=== PATIENT | female | born 1950 | race Caucasian/White ===

== ENCOUNTER 2017-08-22 14:40 | Outpatient (CLI) | payer MEDICARE, OTHER ==
--- NOTE | 2017-08-22 15:24 | XRAY Report ---
EXAM: LEFT SHOULDER RADIOGRAPHY EXAM DATE: 08/22/2017 03:05 PM. CLINICAL HISTORY: Fall one day ago. Left shoulder pain COMPARISON: None. TECHNIQUE: 3 views. FINDINGS: Bones: Mildly comminuted, impacted humeral neck fracture, with mild apex anterior angulation at the f racture site. Joints: Anteroinferior subluxation at the glenohumeral joint. Normal alignment of the acromioclavicul ar joint. Mild joint space loss and osteophytosis at the acromioclavicular joint, and mild subchondra l degenerative changes at the glenohumeral joint, compatible with osteoarthritis. Soft tissues: The visualized hemithorax is unremarkable. No evident focal soft tissue swelling. IMPRESSION: 1. Mildly comminuted, angulated, and impacted humeral neck fracture with associated anteroinferior hardwick bluxation at the glenohumeral joint. 2. Mild glenohumeral and acromioclavicular osteoarthritis. RADIA The call report notification system was initiated by Dr. Miley Flores at 15:15 hrs on 08/22/17. The above findings were discussed with Roel Rubin by Dr. Miley Flores at 15:22 hrs on 08/22/17. Referring Provider Line: [phone] SITE ID: [id number]
--- NOTE | 2017-08-22 15:24 | XRAY Preliminary Report ---
Exam: XR HUMERUS LT IMPRESSION: Mildly comminuted, angulated, and impacted humeral neck fracture with associated anteroin ferior subluxation at the glenohumeral joint. ASHWINIA The call report notification system was initiated by Dr. Miley Flores at 15:20 hrs on 08/22/17. The above findings were discussed with Roel Rubin by Dr. Miley Flores at 15:23 hrs on 08/22/17. SITE ID: [id number]
--- NOTE | 2017-08-22 15:24 | XRAY Report ---
EXAM: LEFT HUMERUS RADIOGRAPHY EXAM DATE: 08/22/2017 03:05 PM. CLINICAL HISTORY: Fall one day ago. Left shoulder pain. COMPARISON: None. TECHNIQUE: 2 views. FINDINGS: Bones: Mildly comminuted, impacted humeral neck fracture, with mild apex anterior angulation at the f racture site. Joints: Anteroinferior subluxation at the glenohumeral joint. Grossly normal alignment of the elbow a s visualized. Soft Tissues: No evident focal soft tissue swelling. IMPRESSION: Mildly comminuted, angulated, and impacted humeral neck fracture with associated anteroin ferior subluxation at the glenohumeral joint. RADIA The call report notification system was initiated by Dr. Miley Flores at 15:20 hrs on 08/22/17. The above findings were discussed with Roel Rubin by Dr. Miley Flores at 15:23 hrs on 08/22/17. Referring Provider Line: [phone] SITE ID: [id number]
== END 2017-08-22 23:59 | disposition home or self-care (01) ==
LOC: DI 14:40
PROVIDERS: ATTEND Family Medicine
DX: S42.292A Other displaced fracture of upper end of left humerus, initial encounter for closed fracture (principal); M19.012 Primary osteoarthritis, left shoulder

== ENCOUNTER 2017-11-23 13:36 | Outpatient (CLI) | payer MEDICARE, OTHER ==
--- NOTE | 2017-11-23 15:16 | DEXA Report ---
Procedure Date: 11/23/2017 Accession Number: [id number] / [id number] Procedure: DEX - Dexa Spine and/or Hip CPT Code: FULL RESULT: EXAM: Dexa Spine and/or Hip DATE: 11/23/2017 1:59 PM CLINICAL HISTORY: OSTEOPENIA TECHNIQUE: Dual energy x-ray absorptiometry (DXA) was performed on a [employer]. Regions measured are the AP Spine, femoral neck, and if needed forearm. COMPARISON: 11/20/2015. In accordance with the International Society for Clinical Densitometry (ISCD) guidelines, data from previous exams may be reanalyzed using current recommendations and techniques. This is done to allow a more accurate basis for comparison with the current study. FINDINGS: The data for the lumbar spine is as follows: BMD (g/cm/cm) T-SCORE Z-SCORE REGION L1 0.866 -2.2 -1.0 L2 1.006 -1.6 -0.4 L3 1.002 -1.7 -0.5 L4 1.067 -1.1 0.1 TOTAL 0.990 -1.6 -0.4 NOTE: All evaluable vertebrae are used for classification The data for the hip is as follows: BMD (g/cm/cm) T-SCORE Z-SCORE REGION Neck 0.901 -1.0 0.3 TOTAL 0.849 -1.3 -0.2 NOTE: The femoral neck or total proximal femur, whichever is lowest, is used for classification. DXA RESULTS SUMMARY: Spine SCAN DATE AGE BMD CHANGE VS CHANGE VS PREVIOUS PREVIOUS % 11[age]23/2017 [age] 0.990 -0.056* -5.4* 11/20/2015 65.0 1.046 * Denotes significant change at the 95% confidence level. Denotes dissimilar scan types or analysis methods. DXA RESULTS SUMMARY: Hip SCAN DATE AGE BMD CHANGE VS CHANGE VS PREVIOUS PREVIOUS % 11[age]23/2017 67.1 0.849 -0.030 -3.4 11[birth year]20/2015 65.0 0.879 * Denotes significant change at the 95% confidence level. Denotes dissimilar scan types or analysis methods. IMPRESSION: THE WHO CLASSIFICATION BASED ON THE INTERNATIONAL REFERENCE STANDARD IS OSTEOPENIA. THE FRACTURE RISK IS INCREASED. RECOMMENDATION: Patients with diagnosis of osteoporosis or osteopenia should have regular bone mineral density assessment. For those eligible for Medicare, routine testing is allowed once every 2 years. Testing frequency can be increased for patients who have rapidly progressing disease or for those who are receiving medical therapy to restore bone mass. COMMENT: World Health Organization (WHO) definitions for osteoporosis and osteopenia: NORMAL BMD: T-score at -1.0 or higher, fracture risk is low OSTEOPENIA BMD: T-score between -1.0 and -2.5, fracture risk is increased. OSTEOPOROSIS BMD: T-score at -2.5 or lower, fracture risk is high. National Osteoporosis Foundation recommends: 1. Obtain adequate dietary calcium (at least 1200 mg per day) and vitamin D (400-800 international units per day). 2. Participate, as appropriate, in regular weightbearing and muscle-strengthening exercise. 3. Avoid tobacco use and reduce alcohol and caffeine intake. 4. For more detailed information see the website at www.NOF.org.
== END 2017-11-23 13:37 | disposition home or self-care (01) ==
LOC: DI 13:36
PROVIDERS: ATTEND Physician Assistant
DX: M85.89 Other specified disorders of bone density and structure, multiple sites (principal)
CPT/HCPCS: 77080

== ENCOUNTER 2019-05-26 14:29 | Outpatient (CLI) | payer MEDICARE, OTHER ==
[2019-05-26 19:11] LABS: ALBUMIN 3.9 g/dL (3.2-5.5); ALBUMIN/GLOBULIN RATIO 1.6 (1.0-2.2); BILIRUBIN,TOTAL 0.7 mg/dL (0.2-1.0); CALCIUM 9.3 mg/dL (8.5-10.3); CREATININE 0.8 mg/dL (0.4-1.0); TOTAL PROTEIN 6.3 g/dL (6.7-8.2)
== END 2019-05-26 23:59 | disposition home or self-care (01) ==
LOC: LAB.WCP 14:29
PROVIDERS: ATTEND Physician Assistant
DX: Z79.899 Other long term (current) drug therapy (principal)
CPT/HCPCS: 36415; 80053

== ENCOUNTER 2019-06-07 11:43 | Outpatient (CLI) | payer MEDICARE, OTHER ==
--- NOTE | 2019-06-08 13:43 | XRAY Report ---
Reason: NECK PAIN, SPASTIC TORTICOLLIS Procedure Date: 06/07/2019 Accession Number: [id number] / [id number] Procedure: WCP - Cervical Spine 2 View CPT Code: Final Report FULL RESULT: EXAM: CERVICAL SPINE RADIOGRAPHY EXAM DATE: 06/07/2019 11:43 AM. CLINICAL HISTORY: Neck pain, spastic torticollis. COMPARISONS: None. TECHNIQUE: 3 views. FINDINGS: Alignment: Normal. No spondylolisthesis or scoliosis. Bones: The cervical vertebral bodies and posterior elements are well visualized from the skull base through C7-T1. No fractures or bone lesions. Degenerative Changes: Moderate to severe disk height loss at C3-C4, C4-C5, C5-C6, and C6-C7. Mild multilevel facet DJD. Soft Tissues: Normal. No prevertebral soft tissue swelling. The visualized lung apices are clear. IMPRESSION: Moderate to severe cervical spondylosis without acute abnormality seen. RADIA
== END 2019-06-07 23:59 | disposition home or self-care (01) ==
LOC: DI.WCP 11:43
PROVIDERS: ATTEND Family Medicine
DX: M47.812 Spondylosis without myelopathy or radiculopathy, cervical region (principal); G24.3 Spasmodic torticollis
CPT/HCPCS: 72040

== ENCOUNTER 2019-06-16 13:15 | Outpatient (CLI) | payer MEDICARE, OTHER ==
--- NOTE | 2019-06-17 09:18 | Mammography Report ---
Reason: ROUTINE MAMMO Procedure Date: 06/16/2019 Accession Number: [id number] / [id number] Procedure: NITESH - Screening Mammo w/Eron CPT Code: Final Report FULL RESULT: EXAM: Screening Mammo w/Eron DATE: 06/16/2019 1:58 PM CLINICAL HISTORY: Screening encounter. History of nulliparity. TECHNIQUE: (B) - Bilateral CC and MLO views were obtained. Left laterally exaggerated cc view is obtained. COMPARISON: 12/30/2017 through 07/10/2011. PARENCHYMAL PATTERN: (A) - The breast(s) demonstrate(s) scattered fibroglandular densities. FINDINGS: In the left breast laterally 9.5 cm from the nipple at the 3:00 position is a grouping of calcifications which is slowly increasing in number over time and questionably associated with a small nodule as seen on MLO image 18, also reference cc image 21. This requires additional spot magnification views for clarification. There are no suspicious masses, calcifications, or areas of distortion of the right breast. IMPRESSION: Incomplete examination. BI-RADS category 0. RECOMMENDATION: (ADDMAM) - Recommend additional mammographic views. Left breast. BI-RADS CATEGORY: (0) - Incomplete Examination - need additional evaluation. STANDARD QUALIFYING STATEMENTS: 1. This examination was not reviewed with the aid of Computer-Aided Detection (CAD). 2. A negative or benign imaging report should not preclude biopsy if clinically suspicious findings are present. 3. Dense breasts may obscure an underlying neoplasm. 4. This examination was reviewed with the aid of 3D breast imaging (tomosynthesis).
== END 2019-06-16 13:16 | disposition home or self-care (01) ==
LOC: DI 13:15
DX: Z12.31 Encounter for screening mammogram for malignant neoplasm of breast (principal); R92.1 Mammographic calcification found on diagnostic imaging of breast
CPT/HCPCS: 77063; 77067

== ENCOUNTER 2019-10-27 13:17 | Outpatient (CLI) | payer MEDICARE, OTHER ==
--- NOTE | 2019-10-28 07:27 | Mammography Report ---
UNILATERAL LEFT DIGITAL DIAGNOSTIC MAMMOGRAM 3D/2D: 10/27/2019 CLINICAL: Patient returns for magnifcation views of microcalcifications in the left breast. Comparison is made to exams dated: 06/16/2019 mammogram, 12/30/2017 mammogram - [facility], and 01/27/2007 mammogram - [facility]. The tissue of left breast is predominantly fatty. There are grouped punctate calcifications in the left breast at 3 o'clock middle depth. No other significant masses or calcifications are seen in the breast. IMPRESSION: PROBABLY BENIGN The grouped punctate calcifications in the left breast are probably benign. A follow-up mammogram in 6 months is recommended to demonstrate stability. This exam was interpreted at Station ID: [id number]. NOTE: For mammograms, a report in lay terms will be sent to the patient. Approximately 15% of breast malignancies will not be visualized mammographically. In the management of a palpable breast mass, a negative mammogram must not discourage biopsy of a clinically suspicious lesion. Electronically Signed By: Angelina Heck M.D. lk/:10/27/2019 14:18:02 ACR BI-RADS Category 3: Probably benign 3343F PARENCHYMAL PATTERN: (F) - The breast(s) demonstrate(s) diffuse fatty replacement. BI-RADS CATEGORY: (3) - 3 Mammogram [id number] 6 month follow-up LATERALITY: (B)
== END 2019-10-27 13:18 | disposition home or self-care (01) ==
LOC: DI 13:17
PROVIDERS: ATTEND Physician Assistant
DX: R92.8 Other abnormal and inconclusive findings on diagnostic imaging of breast (principal)

== ENCOUNTER 2019-12-14 10:06 | Outpatient (CLI) | payer MEDICARE, OTHER ==
[2019-12-14 18:23] LABS: BASOPHILS % (AUTO) 0.7 %; EOSINOPHILS # (AUTO) 0.1 10^3/uL (0.0-0.7); HGB - HEMOGLOBIN 13.3 g/dL (12.0-16.0); LYMPHOCYTES # (AUTO) 2.5 10^3/uL (1.5-3.5); LYMPHOCYTES % (AUTO) 46.5 %; MEAN CORPUSCULAR HEMOGLOBIN 30.5 pg (27.0-31.0); MEAN CORPUSCULAR HGB CONC 32.1 g/dL (32.0-36.0); MEAN PLATELET VOLUME 11.3 fL (7.9-10.8); MONOCYTES # (AUTO) 0.3 10^3/uL (0.0-1.0); MONOCYTES % (AUTO) 5.3 %; NEUTROPHILS # (AUTO) 2.5 10^3/uL (1.5-6.6); NEUTROPHILS % (AUTO) 45.3 %; PLT - PLATELET COUNT 174 10^3/uL (130-450); RED BLOOD COUNT 4.36 10^6/uL (4.20-5.40); RED CELL DISTRIBUTION WIDTH 12.8 % (12.0-15.0); WHITE BLOOD COUNT 5.5 x10^3/uL (4.8-10.8)
[2019-12-14 18:43] LABS: ALBUMIN 4.1 g/dL (3.2-5.5); ALKALINE PHOSPHATASE 61 IU/L (42-121); ALT ALANINE AMINOTRANSFERASE 18 IU/L (10-60); AST ASPARTATE AMINOTRANSFERASE 17 IU/L (10-42); BUN - BLOOD UREA NITROGEN 16 mg/dL (6-20); CALCIUM 9.4 mg/dL (8.5-10.3); CARBON DIOXIDE - CO2 30 mmol/L (21-32); CHLORIDE 106 mmol/L (101-111); CHOL/HDL RATIO 3.1 (<4.4); CHOLESTEROL 150 mg/dL; CREATININE 0.9 mg/dL (0.4-1.0); GLUCOSE 78 mg/dL (70-100); HDL CHOLESTEROL 48 mg/dL; LDL CHOLESTEROL,CALCULATED 87 mg/dL; LDL/HDL RATIO 1.8 (<4.4); SODIUM 141 mmol/L (135-145); TOTAL PROTEIN 6.1 g/dL (6.7-8.2); VLDL CHOLESTEROL 15 mg/dL
[2019-12-14 20:26] LABS: HEMOGLOBIN A1c% 5.3 % (4.27-6.07)
== END 2019-12-14 23:59 | disposition home or self-care (01) ==
LOC: LAB.WCP 10:06
PROVIDERS: ATTEND Physician Assistant
DX: E78.5 Hyperlipidemia, unspecified (principal); E03.9 Hypothyroidism, unspecified; Z79.899 Other long term (current) drug therapy
CPT/HCPCS: 36415; 80053; 80061; 83036; 83721; 84443; 85025

== ENCOUNTER 2020-06-05 11:36 | Outpatient (CLI) | payer MEDICARE, OTHER ==
--- NOTE | 2020-06-05 13:38 | Mammography Report ---
BILATERAL DIGITAL DIAGNOSTIC MAMMOGRAM 3D/2D: 06/05/2020 CLINICAL: Patient returns for 6 month follow up on left breast for calcifications. Comparison is made to exams dated: 10/27/2019 mammogram, 06/16/2019 mammogram, and 12/30/2017 mammogram - [facility]. The tissue of both breasts is predominantly fatty. There are stable benign grouped punctate calcifications in the left breast at 3 o'clock middle depth. Stable since December 2017. No other significant masses, calcifications, or other findings are seen in either breast. IMPRESSION: BENIGN There is no mammographic evidence of malignancy. Return to annual mammogram screening schedule is rec ommended. This exam was interpreted at Station ID: [id number]. NOTE: For mammograms, a report in lay terms will be sent to the patient. Approximately 15% of breast malignancies will not be visualized mammographically. In the management of a palpable breast mass, a negative mammogram must not discourage biopsy of a clinically suspicious lesion. Electronically Signed By: [place] acr/:06/05/2020 12:20:10 ACR BI-RADS Category 2: Benign Finding(s) 3342F PARENCHYMAL PATTERN: (F) - The breast(s) demonstrate(s) diffuse fatty replacement. BI-RADS CATEGORY: (2) - 2 RECOMMENDATION: (ANNUAL) - Recommend routine annual screening mammography. [id number] return to screening LATERALITY: (B)
== END 2020-06-05 11:37 | disposition home or self-care (01) ==
LOC: DI 11:36
PROVIDERS: ATTEND Physician Assistant
DX: R92.8 Other abnormal and inconclusive findings on diagnostic imaging of breast (principal)

== ENCOUNTER 2021-10-25 08:00 | Outpatient (CLI) | payer MEDICARE, OTHER ==
[2021-10-25 17:53] LABS: BASOPHILS # (AUTO) 0.1 10^3/uL (0.0-0.1); BASOPHILS % (AUTO) 0.9 %; EOSINOPHILS # (AUTO) 0.1 10^3/uL (0.0-0.7); EOSINOPHILS % (AUTO) 1.3 %; HCT - HEMATOCRIT 37.6 % (37.0-47.0); HGB - HEMOGLOBIN 12.2 g/dL (12.0-16.0); LYMPHOCYTES # (AUTO) 2.1 10^3/uL (1.5-3.5); LYMPHOCYTES % (AUTO) 37.8 %; MEAN CORPUSCULAR HEMOGLOBIN 30.3 pg (27.0-31.0); MEAN CORPUSCULAR HGB CONC 32.4 g/dL (32.0-36.0); MEAN CORPUSCULAR VOLUME 93.5 fL (81.0-99.0); MEAN PLATELET VOLUME 10.5 fL (7.9-10.8); MONOCYTES # (AUTO) 0.4 10^3/uL (0.0-1.0); MONOCYTES % (AUTO) 6.9 %; NEUTROPHILS # (AUTO) 2.9 10^3/uL (1.5-6.6); NEUTROPHILS % (AUTO) 52.4 %; PLT - PLATELET COUNT 237 10^3/uL (130-450); RED BLOOD COUNT 4.02 10^6/uL (4.20-5.40); RED CELL DISTRIBUTION WIDTH 13.4 % (12.0-15.0); WHITE BLOOD COUNT 5.5 x10^3/uL (4.8-10.8)
[2021-10-25 18:16] LABS: THYROID STIMULATING HORMONE 1.05 uIU/mL (0.34-5.60)
[2021-10-25 18:17] LABS: ALBUMIN/GLOBULIN RATIO 1.7 (1.0-2.2); BILIRUBIN,TOTAL 0.7 mg/dL (0.2-1.0); CALCIUM 9.3 mg/dL (8.5-10.3); CREATININE 0.8 mg/dL (0.4-1.0); POTASSIUM 3.9 mmol/L (3.5-5.0); TOTAL PROTEIN 6.3 g/dL (6.7-8.2); URIC ACID 3.2 mg/dL (2.6-7.2)
[2021-10-25 18:20] LABS: FREE T4 (FREE THYROXINE) 0.85 ng/dL (0.58-1.64)
== END 2021-10-25 23:59 | disposition home or self-care (01) ==
LOC: LAB.N 08:00
PROVIDERS: ATTEND Registered Nurse
DX: E03.9 Hypothyroidism, unspecified (principal); L60.9 Nail disorder, unspecified; L60.4 Beau's lines
CPT/HCPCS: 36415; 80053; 83540; 84439; 84443; 84466; 84481; 84550; 85025

== ENCOUNTER 2021-11-11 12:50 | Outpatient (CLI) | payer MEDICARE, OTHER ==
--- NOTE | 2021-11-12 09:12 | Mammography Report ---
BILATERAL DIGITAL SCREENING MAMMOGRAM 3D/2D: 11/11/2021 CLINICAL: Routine screening. Comparison is made to exams dated: 06/05/2020 mammogram, 10/27/2019 mammogram, 06/16/2019 mammogram, and 12/30/2017 mammogram - [facility]. There are scattered fibroglandular elements in both breasts. There are benign calcifications in both breasts. No significant masses, calcifications, or other findings are seen in either breast. There has been no significant interval change. IMPRESSION: BENIGN There is no mammographic evidence of malignancy. A 1 year screening mammogram is recommended. Based on the Tyrer Cuzick model (a risk assessment model) the patients lifetime risk is 6.8% and her 10 year risk is 5.1%. According to the ACR, ACS, and NCCN guidelines, an annual breast MRI exam ekaterina g with mammogram is recommended if the patients lifetime risk is 20% or greater. This exam was interpreted at Station ID: [id number]. NOTE: For mammograms, a report in lay terms will be sent to the patient. Approximately 15% of breast malignancies will not be visualized mammographically. In the management of a palpable breast mass, a negative mammogram must not discourage biopsy of a clinically suspicious lesion. Electronically Signed By: Rito chiu/amber:11/11/2021 14:55:58 ACR BI-RADS Category 2: Benign Finding(s) 3342F PARENCHYMAL PATTERN: (A) - The breast(s) demonstrate(s) scattered fibroglandular densities. BI-RADS CATEGORY: (2) - 2 RECOMMENDATION: (ANNUAL) - Recommend routine annual screening mammography. [id number] 1 year screening LATERALITY: (B)
== END 2021-11-11 12:51 | disposition home or self-care (01) ==
LOC: DI 12:50
PROVIDERS: ATTEND Internal Medicine
DX: Z12.31 Encounter for screening mammogram for malignant neoplasm of breast (principal)

== ENCOUNTER 2021-11-11 14:23 | Outpatient (CLI) | payer MEDICARE, OTHER ==
--- NOTE | 2021-11-11 16:40 | MRI Report ---
PROCEDURE: Lumbar Spine W/O INDICATIONS: DJD LUMBAR SPINE, POST MENOPAUSAL TECHNIQUE: Noncontrast sagittal T1 spin echo and T2 fast echo, sagittal STIR, axial T1 and T2 fast spin echo thr ough the lumbar spine. In cases with scoliosis, additional coronal T2 fast spin echo may be performe d. COMPARISON: None. FINDINGS: Image quality: Excellent. Alignment and Curvature: There is mild retrolisthesis seen at L2-L3. Minimal retrolisthesis is seen at L3-L4. Mild grade 1 anterolisthesis is seen at L5-S1. No definite associated pars defects are seen . Bone Marrow: Marrow is of normal overall signal. No acute vertebral body compression fractures. Spinal Cord: Conus medullaris terminates at the L1 level. Visualized cord demonstrates normal signa l and size. Paraspinous Soft Tissues: No paravertebral masses. T12-L1: Normal in appearance. L1-L2: Normal in appearance. L2-L3: At least moderate loss of disc height and disc signal can be seen. Reactive marrow endplat e changes are seen, which are on hypointense on T1-weighted and hyperintense T2-weighted imaging, w ith associated increased STIR signal. These imaging findings are most consistent with endplate edema (Modic type 1 change). At least moderate disc bulge is seen, which is eccentric to the right. A supe rimposed central disc protrusion is seen. Mild to moderate facet hypertrophy is seen. There is modera te to severe bilateral neuroforaminal narrowing seen, left worse than right. Compression is seen upo n the exiting nerve roots. At least moderate central canal narrowing is seen, as on series 7 image 9 . L3-L4: Mild loss of disc height and disc signal are seen. Mild to moderate disc bulge is seen. Mild to moderate facet hypertrophy can be seen. There is at least moderate right-sided and moderate to se burton left-sided neuroforaminal narrowing. Compression is seen upon the exiting nerve roots. Moderat e central canal narrowing is seen. L4-L5: The disc height is well-preserved. There is loss of disc signal seen. Mild to moderate disc bulge is seen. Moderate facet hypertrophy is seen. There is at least moderate bilateral neuroforami nal narrowing seen. Compression is seen upon the exiting nerve roots. Moderate central canal narrow ing is seen. L5-S1: The disc height is well-preserved. There is loss of disc signal seen. Mild disc bulge is se en. Moderate facet hypertrophy is seen. At least moderate right-sided and moderate to severe left- sided neuroforaminal narrowing can be seen. Compression is seen upon the exiting nerve roots. Moder ate central canal narrowing is seen. IMPRESSION: Multiple levels of lumbar spine degenerative change are seen, which are overall worst at the L2-3 level. Several sites of significant neuroforaminal narrowing can be seen, with associated exiting nerve root compression. Reviewed by: Amrit Ryan MD on 11/11/2021 4:38 PM PDT Approved by: Amrit Ryan MD on 11/11/2021 4:38 PM PDT Station ID: [id number]
== END 2021-11-11 14:24 | disposition home or self-care (01) ==
LOC: DI 14:23
PROVIDERS: ATTEND Internal Medicine
DX: M47.26 Other spondylosis with radiculopathy, lumbar region (principal); M48.061 Spinal stenosis, lumbar region without neurogenic claudication; M47.27 Other spondylosis with radiculopathy, lumbosacral region; M48.07 Spinal stenosis, lumbosacral region; M51.36 Other intervertebral disc degeneration, lumbar region; M51.37 Other intervertebral disc degeneration, lumbosacral region

== ENCOUNTER 2021-12-06 15:22 | Outpatient (CLI) | payer MEDICARE, OTHER ==
--- NOTE | 2021-12-06 16:27 | DEXA Report ---
PROCEDURE: Dexa Spine and/or Hip INDICATIONS: POST MENOPAUSAL TECHNIQUE: Dual energy x-ray absorptiometry (DXA) was performed on a [employer]. Regions measur ed are the AP Spine, femoral neck, and if needed forearm. COMPARISON: None. FINDINGS: Lumbar Spine: Bone Mineral Density 1.1 g/cm/cm,T score -0.8, normal bone density Left Hip: Bone Mineral Density 0.8 g/cm/cm,T score -1.8, osteopenia Impression: 1. Normal lumbar spine bone density. 2. Left hip osteopenia. Patients with diagnosis of osteoporosis or osteopenia should have regular bone mineral density assess ment. For those eligible for Medicare, routine testing is allowed once every 2 years. Testing frequ ency can be increased for patients who have rapidly progressing disease or for those who are receivin g medical therapy to restore bone mass. Reviewed by: Shaq Major MD on 12/06/2021 4:25 PM PDT Approved by: Shaq Major MD on 12/06/2021 4:25 PM PDT Station ID: [id number]
== END 2021-12-06 15:23 | disposition home or self-care (01) ==
LOC: DI 15:22
PROVIDERS: ATTEND Internal Medicine
DX: Z78.0 Asymptomatic menopausal state (principal); M85.88 Other specified disorders of bone density and structure, other site

== ENCOUNTER 2022-04-21 11:18 | Outpatient (CLI) | payer MEDICARE, OTHER ==
[2022-04-21 17:42] LABS: BASOPHILS % (AUTO) 0.6 %; EOSINOPHILS # (AUTO) 0.1 10^3/uL (0.0-0.7); EOSINOPHILS % (AUTO) 1.6 %; HCT - HEMATOCRIT 45.6 % (37.0-47.0); HGB - HEMOGLOBIN 14.8 g/dL (12.0-16.0); LYMPHOCYTES # (AUTO) 2.9 10^3/uL (1.5-3.5); LYMPHOCYTES % (AUTO) 42.5 %; MEAN CORPUSCULAR HGB CONC 32.5 g/dL (32.0-36.0); MEAN CORPUSCULAR VOLUME 95.4 fL (81.0-99.0); MEAN PLATELET VOLUME 10.2 fL (7.9-10.8); MONOCYTES # (AUTO) 0.4 10^3/uL (0.0-1.0); MONOCYTES % (AUTO) 5.5 %; NEUTROPHILS # (AUTO) 3.3 10^3/uL (1.5-6.6); NEUTROPHILS % (AUTO) 49.5 %; PLT - PLATELET COUNT 236 10^3/uL (130-450); RED BLOOD COUNT 4.78 10^6/uL (4.20-5.40); RED CELL DISTRIBUTION WIDTH 13.5 % (12.0-15.0); WHITE BLOOD COUNT 6.7 x10^3/uL (4.8-10.8)
[2022-04-21 18:08] LABS: THYROID STIMULATING HORMONE 15.23 uIU/mL (0.34-5.60)
[2022-04-21 18:11] LABS: FREE T3 2.8 pg/mL (2.5-3.9)
[2022-04-21 18:12] LABS: FREE T4 (FREE THYROXINE) 0.88 ng/dL (0.58-1.64)
[2022-04-21 18:16] LABS: FERRITIN 22.5 ng/mL (11.0-306.8)
[2022-04-21 18:28] LABS: % IRON SATURATION 49 % (20-50); BUN - BLOOD UREA NITROGEN 19 mg/dL (6-20); CALCIUM 9.8 mg/dL (8.5-10.3); CARBON DIOXIDE - CO2 30 mmol/L (21-32); CHLORIDE 100 mmol/L (101-111); CHOL/HDL RATIO 3.3 (<4.4); CHOLESTEROL 234 mg/dL; CREATININE 0.9 mg/dL (0.4-1.0); GFR - MDRD 62 (>89); GLUCOSE 85 mg/dL (70-100); HDL CHOLESTEROL 70 mg/dL; IRON 185 ug/dL (28-170); LDL CHOLESTEROL,CALCULATED 142 mg/dL; POTASSIUM 3.7 mmol/L (3.5-5.0); SODIUM 137 mmol/L (135-145); TOTAL IRON BINDING CAPACITY 381 ug/dL (250-450); TRANSFERRIN 272 mg/dL (192-382); TRIGLYCERIDES 110 mg/dL; VLDL CHOLESTEROL 22 mg/dL
[2022-04-21 20:52] LABS: ESTIMATED AVERAGE GLUCOSE 108 mg/dL (70-100); HEMOGLOBIN A1c% 5.4 % (4.27-6.07)
== END 2022-04-21 11:19 | disposition home or self-care (01) ==
LOC: LAB.N 11:18
PROVIDERS: ATTEND Internal Medicine
DX: E03.9 Hypothyroidism, unspecified (principal); L60.1 Onycholysis; E78.5 Hyperlipidemia, unspecified; R73.01 Impaired fasting glucose; R79.0 Abnormal level of blood mineral
CPT/HCPCS: 36415; 80048; 80061; 82728; 83036; 83540; 83721; 84439; 84443; 84466; 84481; 85025

== ENCOUNTER 2022-07-31 10:16 | Outpatient (CLI) | payer MEDICARE, OTHER ==
[2022-07-31 11:55] LABS: CALCIUM 9.2 mg/dL (8.5-10.3); CREATININE 0.9 mg/dL (0.4-1.0); POTASSIUM 4.1 mmol/L (3.5-5.0)
[2022-07-31 12:03] LABS: ESTIMATED AVERAGE GLUCOSE 103 mg/dL (70-100); HEMOGLOBIN A1c% 5.2 % (4.27-6.07)
[2022-07-31 12:20] LABS: FREE T3 4.07 pg/mL (2.5-3.9); THYROID STIMULATING HORMONE 0.27 uIU/mL (0.34-5.60)
[2022-07-31 12:21] LABS: FREE T4 (FREE THYROXINE) 0.96 ng/dL (0.58-1.64)
== END 2022-07-31 10:17 | disposition home or self-care (01) ==
LOC: LAB.N 10:16
PROVIDERS: ATTEND Internal Medicine
DX: E03.9 Hypothyroidism, unspecified (principal); R73.01 Impaired fasting glucose
CPT/HCPCS: 36415; 80048; 83036; 84439; 84443; 84481

== ENCOUNTER 2022-11-19 08:42 | Outpatient (CLI) | payer MEDICARE, OTHER ==
[2022-11-19 09:24] LABS: THYROID STIMULATING HORMONE 0.05 uIU/mL (0.34-5.60)
== END 2022-11-19 08:43 | disposition home or self-care (01) ==
LOC: LAB 08:42
PROVIDERS: ATTEND Internal Medicine
DX: E03.9 Hypothyroidism, unspecified (principal)
CPT/HCPCS: 36415; 84439; 84443; 84481

== ENCOUNTER 2022-12-02 09:34 | Emergency (ER) | payer MEDICARE, OTHER ==
[2022-12-02 09:53] VITALS: O2SAT 99
--- NOTE | 2022-12-02 10:29 | XRAY Report ---
PROCEDURE: Ribs w/PA Chest RT INDICATIONS: trauma TECHNIQUE: 3 views of the right ribs were acquired, along with a single view chest. COMPARISON: None. FINDINGS: Surgical changes and devices: None. Bones and chest wall: No fractures or dislocations. No suspicious bony lesions. Overlying soft tis sues appear unremarkable. Lungs and pleura: No pleural effusions or pneumothorax. Lungs appear clear. Mediastinum: Mediastinal contours appear normal. Heart size is normal. IMPRESSION: No visualized acute fracture or dislocation. However, occult injury cannot be excluded. Recommend bret rt interval imaging follow-up in 7-10 days as clinically indicated for additional evaluation. Reviewed by: Dominique More MD on 12/02/2022 10:28 AM PDT Approved by: Dominique More MD on 12/02/2022 10:28 AM PDT Station ID: [id number]
[2022-12-02] MEDS ORDERED: LIDOCAINE PATCH 5% TOP STA (11:04)
--- NOTE | 2022-12-02 11:06 | ED Physician Documentation ---
History of Present Illness - Stated complaint Stated Complaint: CHEST PX - Chief complaint Chief Complaint: Trauma Ch/Bk - History obtained from History obtained from: Patient - Additonal information Additional information: Patient is a 72-year-old female presenting for evaluation of right-sided chest pain after hitting it against a trash can as she was trying to clean out the bottom of a large trash bin 1 week ago. She does not take a blood thinner. She reports noticing the pain with certain movements. Pain does not radiate elsewhere.Her is at the [facility] clinic for an appointment so patient decided to get evaluated today.She reports seeing her doctor on Thursday for a regular appointment but did not Remember to bring it up to him. Review of Systems Constitutional: denies: Fever Cardiac: reports: Chest pain / pressure Respiratory: denies: Dyspnea Musculoskeletal: denies: Extremity swelling PD PAST MEDICAL HISTORY - Past Medical History Cardiovascular: High cholesterol Respiratory: None Endocrine/Autoimmune: HyPOthyroidism GI: GERD : None HEENT: None Psych: Depression, Anxiety Musculoskeletal: Osteoarthritis Derm: Herpes zoster, Other - Past Surgical History General: Colonoscopy, EGD Ortho: Other Cardiovascular: Other Derm: Skin cancer surgery, Other - Present Medications Home Medications: Ambulatory Orders Medication Instructions Recorded Confirmed Acyclovir [Zovirax] 400 mg PO DAILY PRN 01/05/14 01/06/14 Atorvastatin Calcium 40 mg PO DAILY 01/05/14 01/06/14 Clobetasol Propionate/Emoll 1 g TOP DAILY PRN 01/05/14 01/06/14 [Clobetasol Emollient 0.05% Crm] Estrogens, Conjugated [Premarin] 0.9 mg VG DAILY 01/05/14 01/06/14 Ibuprofen [Motrin] 800 mg PO Q8H PRN 01/05/14 01/06/14 Lamotrigine [Lamotrigine ER] 300 mg PO DAILY 01/05/14 01/06/14 Levothyroxine Sodium [Synthroid] 125 mcg PO DAILY 01/05/14 01/06/14 Omeprazole 20 mg PO DAILY 01/05/14 01/06/14 Venlafaxine HCl [Effexor Xr] 150 mg PO DAILY 01/05/14 01/06/14 metroNIDAZOLE [Metrogel-Vaginal] 70 gm VG DAILY PRN 01/05/14 01/06/14 Lidocaine Patch 5% [Lidoderm Patch] 1 patch TOP DAILY PRN #10 patch 12/02/22 - Allergies Allergies/Adverse Reactions: Allergies Allergy/AdvReac Type Severity Reaction Status Date / Time Sulfa (Sulfonamide Allergy Rash Verified 01/06/14 11:58 Antibiotics) PD ED PE NORMAL - General General: Alert and oriented X 3, No acute distress, Well developed/nourished - HEENT HEENT: Atraumatic - Neck Neck: Supple, no meningeal sign - Cardiac Cardiac: RRR, No murmur, Strong equal pulses, Other (Right-sided chest wall tenderness to palpation right-sided chest wall tenderness, no deformity, no crepitus, no bruising) - Respiratory Respiratory: No respiratory distress, Clear bilaterally - Abdomen Abdomen: Soft, Non tender - Derm Derm: Warm and dry - Extremities Extremities: No edema, No calf tenderness / cord Results - Vitals Vitals: Vital Signs - 24 hr 12/02/22 12/02/22 09:40 11:44 Temperature 37.2 C Heart Rate 75 70 Respiratory 16 16 Rate Blood Pressure 111/71 130/70 O2 Saturation 99 99 Oxygen O2 Source Room air PD Medical Decision Making - ED course Complexity details: re-evaluated patient, d/w patient ED course: Patient is a 72-year-old female presenting for evaluation of right-sided chest pain after a injury 1 week ago. Does not take a blood thinner. Has reproducible tenderness. Chest x-ray was obtained and reviewed I see no signs of pneumothorax or rib fracture. Patient is counseled on continued supportive care as well as concerning symptoms to return for. Departure - Departure Disposition: 01 Home, Self Care Clinical Impression: Right-sided chest wall pain Condition: Stable Instructions: ED Strain Chest Wall Follow-Up: Ulisses Cox MD [Primary Care Provider] - Prescriptions: Lidocaine Patch 5% [Lidoderm Patch] 1 patch TOP DAILY PRN #10 patch PRN Reason: pain Comments: Your x-ray does not show a collapsed lung or a broken rib. Your symptoms are likely related to a bruise or strain of the muscle. Please continue with anti- inflammatory such as acetaminophen. I also recommend trial of lidocaine patches and have sent a prescription to the [facility] pharmacy in [place]. Please also have close follow-up with your primary care provider if your symptoms are not improving. Return to the ER if you develop any worsening symptoms such as pain in a new location. Forms: PCP List Discharge Date/Time: 12/02/22 11:46
[2022-12-02 11:52] VITALS: BP 130/70
== END 2022-12-02 11:46 | disposition home or self-care (01) ==
LOC: ED 09:34
DX: R07.89 Other chest pain (principal); E78.00 Pure hypercholesterolemia, unspecified; E03.9 Hypothyroidism, unspecified; Z79.899 Other long term (current) drug therapy
CPT/HCPCS: 99283; 99284

== ENCOUNTER 2022-12-16 11:07 | Outpatient (CLI) | payer MEDICARE, OTHER ==
--- NOTE | 2022-12-17 09:29 | Mammography Report ---
BILATERAL DIGITAL SCREENING MAMMOGRAM 3D/2D: 12/16/2022 CLINICAL: Routine screening. Comparison is made to exams dated: 11/11/2021 mammogram, 06/05/2020 mammogram, 10/27/2019 mammogram, 06/15 mammogram, and 12/30/2017 mammogram - [facility]. There are scattered areas of fibroglandular density in both breasts (category b / 25%-50% glandular t issue). There are benign calcifications in both breasts. No significant masses, calcifications, or other findings are seen in either breast. There has been no significant interval change. IMPRESSION: BENIGN There is no mammographic evidence of malignancy. A 1 year screening mammogram is recommended. Based on the Tyrer Cuzick model (a risk assessment model) the patients lifetime risk is 6.4% and her 10 year risk is 5.3%. According to the ACR, ACS, and NCCN guidelines, an annual breast MRI exam ekaterina g with mammogram is recommended if the patients lifetime risk is 20% or greater. This exam was interpreted at Station ID: [id number]. NOTE: For mammograms, a report in lay terms will be sent to the patient. Approximately 15% of breast malignancies will not be visualized mammographically. In the management of a palpable breast mass, a negative mammogram must not discourage biopsy of a clinically suspicious lesion. Electronically Signed By: Aiyana sinha/amber:12/16/2022 15:25:54 letter sent: No_Letter ACR BI-RADS Category 2: Benign Finding(s) 3342F PARENCHYMAL PATTERN: (A) - The breast(s) demonstrate(s) scattered fibroglandular densities. BI-RADS CATEGORY: (2) - 2 Mammogram [id number] 1 year screening LATERALITY: (B)
== END 2022-12-16 11:08 | disposition home or self-care (01) ==
LOC: DI 11:07
PROVIDERS: ATTEND Internal Medicine
DX: Z12.31 Encounter for screening mammogram for malignant neoplasm of breast (principal)

== ENCOUNTER 2023-05-20 12:29 | Outpatient (CLI) | payer MEDICARE, OTHER ==
[2023-05-20 13:21] LABS: ALBUMIN 4.1 g/dL (3.2-5.5); ALBUMIN/GLOBULIN RATIO 1.8 (1.0-2.2); ALKALINE PHOSPHATASE 62 IU/L (42-121); ALT ALANINE AMINOTRANSFERASE 16 IU/L (10-60); AST ASPARTATE AMINOTRANSFERASE 17 IU/L (10-42); BILIRUBIN,TOTAL 0.5 mg/dL (0.2-1.0); BUN - BLOOD UREA NITROGEN 27 mg/dL (6-20); CALCIUM 9.8 mg/dL (8.5-10.3); CARBON DIOXIDE - CO2 32 mmol/L (21-32); CHLORIDE 99 mmol/L (101-111); CHOL/HDL RATIO 2.8 (<4.4); CHOLESTEROL 179 mg/dL; GFR - MDRD 54 (>89); GLUCOSE 85 mg/dL (74-104); HDL CHOLESTEROL 63 mg/dL; LDL CHOLESTEROL,CALCULATED 94 mg/dL; LDL/HDL RATIO 1.5 (<4.4); POTASSIUM 3.8 mmol/L (3.5-4.5); SODIUM 137 mmol/L (135-145); TOTAL PROTEIN 6.4 g/dL (6.4-8.9); TRIGLYCERIDES 112 mg/dL (48-352); VLDL CHOLESTEROL 22 mg/dL
[2023-05-20 21:10] LABS: ESTIMATED AVERAGE GLUCOSE 111 mg/dL (70-100); HEMOGLOBIN A1c% 5.5 % (4.27-6.07)
== END 2023-05-20 12:30 | disposition home or self-care (01) ==
LOC: LAB 12:29
PROVIDERS: ATTEND Internal Medicine
DX: Z01.84 Encounter for antibody response examination (principal); E03.9 Hypothyroidism, unspecified; E78.5 Hyperlipidemia, unspecified; R73.01 Impaired fasting glucose
CPT/HCPCS: 36415; 80053; 80061; 83036; 83721; 84439; 84443; 84481; 86787

== ENCOUNTER 2023-05-20 12:44 | Outpatient (CLI) | payer MEDICARE, OTHER ==
--- NOTE | 2023-05-20 16:14 | MRI Report ---
PROCEDURE: Knee LT WO INDICATIONS: LEFT KNEE INSTABILITY TECHNIQUE: Noncontrast sagittal PD fast spin echo and T2 fast spin echo with fat saturation, sagittal 3-D gradie nt sequence with fat saturation; coronal T1 spin echo and PD fast spin echo with fat saturation, and axial PD fast spin echo with fat saturation through the knee. COMPARISON: None. FINDINGS: Image quality: Excellent. Menisci: Subtle signal abnormality involving posterior horn of medial meniscus possibly extending to inferior articulating surface concerning for very subtle oblique tear. Complex tear involving anterio r horn, body and posterior horn of lateral meniscus is seen extending to both superior and inferior a rticulating surfaces. Peripheral displacement of lateral meniscus bowing lateral collateral ligament is seen. The meniscal root ligaments appear intact. Cruciate ligaments: The anterior cruciate ligament is thickened with intrasubstance T2 hyperintense signal. The posterior cruciate ligament is intact. Medial structures: The medial collateral ligament appears mildly thickened at its femoral insertion with surrounding soft tissue edema. Visualized portions of the pes anserinus tendons appear normal. No abnormal bursal fluid. Lateral structures: The lateral collateral ligament, long and short heads of the biceps femoris tend on appear thickened. The popliteus tendon appears normal. Iliotibial band appears normal. Anterior structures: Distal quadriceps tendinosis at its superior patella insertion is seen. Patellar tendon is intact. Patellar alignment is normal. No femoral trochlear dysplasia or ventral trochlear prominence. No edema in the infrapatellar fat pad. Bones and cartilage: No bone marrow contusions or fractures. 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 Joint space: There is moderate knee joint fluid. No Vargas's cyst. Normal appearing synovial plicae are incidentally noted. IMPRESSION: 1. Complex tear involving entire lateral meniscus extending to both superior and inferior articulatin g surfaces. Possible subtle oblique tear involving posterior horn of medial meniscus extending to inf erior articulating surface. 2. Low to moderate grade sprain/intrasubstance partial thickness tear involving anterior cruciate lig ament. No ACL rupture. The PCL is intact. 3. Low-grade MCL sprain. Low-grade LCL sprain. Distal biceps femoris tendinosis. 4. Distal quadriceps tendinosis. 5. Mild to moderate tricompartmental osteophytosis and chondromalacia most notably in lateral femoral tibial compartment. No fracture or dislocation. Moderate joint effusion, no gross loose bodies. Reviewed by: Paul Barron MD on 05/20/2023 4:12 PM PST Approved by: Paul Barron MD on 05/20/2023 4:12 PM PST Station ID: [id number]
== END 2023-05-20 12:45 | disposition home or self-care (01) ==
LOC: DI 12:44
PROVIDERS: ATTEND Internal Medicine
DX: S83.272A Complex tear of lateral meniscus, current injury, left knee, initial encounter (principal); S83.512A Sprain of anterior cruciate ligament of left knee, initial encounter; S83.422A Sprain of lateral collateral ligament of left knee, initial encounter; S83.412A Sprain of medial collateral ligament of left knee, initial encounter; M67.864 Other specified disorders of tendon, left knee; M17.12 Unilateral primary osteoarthritis, left knee; M94.262 Chondromalacia, left knee; M25.462 Effusion, left knee; Z01.84 Encounter for antibody response examination; E03.9 Hypothyroidism, unspecified; E78.5 Hyperlipidemia, unspecified; R73.01 Impaired fasting glucose
CPT/HCPCS: 36415; 80053; 80061; 83036; 83721; 84439; 84443; 84481; 86787

== ENCOUNTER 2023-09-09 10:11 | Outpatient (CLI) | payer MEDICARE, OTHER ==
[2023-09-09 13:03] LABS: THYROID STIMULATING HORMONE 5.64 uIU/mL (0.34-5.60)
== END 2023-09-09 10:12 | disposition home or self-care (01) ==
LOC: LAB.N 10:11
PROVIDERS: ATTEND Internal Medicine
DX: E03.9 Hypothyroidism, unspecified (principal)
CPT/HCPCS: 36415; 84439; 84443; 84481